=== PATIENT | female | born 1980 | race Caucasian/White ===

== ENCOUNTER 2016-06-16 14:04 | Emergency (ER) | payer BC ==
[~2016-06-16] VITALS: Ht 160 cm; Wt 101.5 kg
[~2016-06-16 14:04] MED LIST: FLEXERIL5 MG PO; LEXAPRO5 MG PO; NORCO 5/3251 TABLET PO; PRENATAL TABLE1 EAC3 PO; SKELAXIN800 MG PO; VITAMIN D-32000 UNI1 PO; ZANTAC150 MG PO
[2016-06-16] MEDS ORDERED: PREDNISONE20 MG PO (15:54)
[2016-06-16] MEDS ORDERED: ZOFRAN ODT4 MG PO (15:54)
[2016-06-16] MEDS ORDERED: ATARAX,VISTARIL25 MG PO (15:54)
[2016-06-16] MEDS ORDERED: ZANTAC150 MG PO (15:54)
[2016-06-16 16:27] VITALS: BP 95/48
== END 2016-06-16 16:28 | disposition home or self-care (01) ==
LOC: EME → EDBD 14:04 → EME 16:28
DX: R11.2 Nausea with vomiting, unspecified (principal); R19.7 Diarrhea, unspecified; L29.9 Pruritus, unspecified; L53.9 Erythematous condition, unspecified; R21 Rash and other nonspecific skin eruption; Z87.891 Personal history of nicotine dependence
CPT/HCPCS: 99281; 99284; J1200; J2405; J2930; J7030; S0028

== ENCOUNTER 2016-07-01 22:10 | Observation (INO) | payer BC ==
[~2016-07-01] VITALS: Ht 157.5 cm; Wt 100.4 kg
[~2016-07-01 22:10] MED LIST changes: +ATARAX,VISTARIL25 MG PO; +PREDNISONE20 MG PO; +ZOFRAN ODT4 MG PO
[2016-07-01 23:23] LABS: HEMATOCRIT 38.7 % (36.0-46.0); MCHC 33.3 G/DL (30.0-36.0); MCV 84.1 FL (83-99); MEAN PLAT.VOLUME 10.1 uM^3 (9.5-12.4); PLATELET COUNT 261 K/uL (156-360); RBC DIS.WIDTH-CV 13.4 % (11.8-14.6); RBC DIS.WIDTH-SD 41.1 % (39-53); WHITE BLOOD COUNT 8.4 K/uL (4.1-10.2)
[2016-07-01 23:34] LABS: CHLORIDE 108 mEq/L (99-109); SODIUM 137 mEq/L (136-147)
[2016-07-01 23:36] LABS: GLUCOSE 95 mg/dL (70-99)
[2016-07-01 23:37] LABS: ANION GAP 9 MEQ/L (2-14)
[2016-07-01 23:40] LABS: GFR ESTIMATE (CALCULATED) > 59 mL/min/; UREA NITROGEN (BUN) 16 mg/dL (9-23)
[2016-07-01 23:45] LABS: TROP-I INTERPRETATION NEGATIVE; TROPONIN-I < 0.01 ng/mL (0.0-0.30)
[2016-07-02 01:25] LABS: TROP-I INTERPRETATION NEGATIVE; TROPONIN-I < 0.01 ng/mL (0.0-0.30)
[2016-07-02] MEDS ORDERED: LEXAPRO10 MG PO (01:39)
[2016-07-02] MEDS ORDERED: CLONAZEPAM0.5 MG PO (01:40)
[2016-07-02] MEDS ORDERED: OMEPRAZOLE20 MG PO (01:41)
[2016-07-02 02:00] LABS: D-DIMER ELISA 0.45 mg/L FEU (< 0.57)
[2016-07-02 02:15] VITALS: BP 103/69
== END 2016-07-02 02:00 | disposition left against medical advice (07) ==
LOC: EME 22:10 → EDOF 07-02 01:25
PROVIDERS: Emergency Medicine
DX: R07.89 Other chest pain (principal); K22.4 Dyskinesia of esophagus; R11.0 Nausea; K21.9 Gastro-esophageal reflux disease without esophagitis; F32.9 Major depressive disorder, single episode, unspecified; F41.9 Anxiety disorder, unspecified
CPT/HCPCS: 71020; 80048; 84484; 85027; 85379; 93005; 99281; 99285; C9113; G0378; J2405; J2765

== ENCOUNTER 2017-06-30 13:18 | Emergency (ER) | payer BC ==
[~2017-06-30] VITALS: Ht 160 cm; Wt 110.1 kg
[~2017-06-30 13:18] MED LIST changes: +CLONAZEPAM0.5 MG PO; +LEXAPRO10 MG PO; +OMEPRAZOLE20 MG PO
[2017-06-30 14:08] LABS: HEMATOCRIT 40.3 % (36.0-46.0); HEMOGLOBIN 13.9 G/DL (11.9-15.5); MCH 28.5 PG (29.0-34.0); MCHC 34.5 G/DL (30.0-36.0); MCV 82.8 FL (83-99); PLATELET COUNT 269 K/uL (156-360); RBC DIS.WIDTH-CV 14.3 % (11.8-14.6); RBC DIS.WIDTH-SD 42.7 % (39-53); RED BLOOD COUNT 4.87 M/uL (3.80-5.20); WHITE BLOOD COUNT 7.3 K/uL (4.1-10.2)
[2017-06-30 14:17] LABS: CHLORIDE 106 mEq/L (99-109); POTASSIUM 3.9 mEq/L (3.7-5.4); SODIUM 138 mEq/L (136-147)
[2017-06-30 14:19] LABS: GLUCOSE 97 mg/dL (70-99)
[2017-06-30 14:23] LABS: CREATININE 0.7 mg/dL (0.6-1.3); GFR ESTIMATE (CALCULATED) > 59 mL/min/; UREA NITROGEN (BUN) 14 mg/dL (9-23)
[2017-06-30 14:31] LABS: QUANTITATIVE HCG < 4.0 MIU/ML
[2017-06-30] MEDS ORDERED: MEDROL DOSEPAK4 MG PO (15:58)
[2017-06-30] MEDS ORDERED: BENADRYL50 MG PO (15:58)
[2017-06-30] MEDS ORDERED: PEPCID20 MG PO (15:58)
[2017-06-30 16:19] VITALS: BP 117/82
== END 2017-06-30 16:20 | disposition home or self-care (01) ==
LOC: EME 13:18
PROVIDERS: Physician Assistant
DX: T78.40XA Allergy, unspecified, initial encounter (principal); L50.0 Allergic urticaria; K21.9 Gastro-esophageal reflux disease without esophagitis; F41.9 Anxiety disorder, unspecified; F32.9 Major depressive disorder, single episode, unspecified; Z87.891 Personal history of nicotine dependence; Z88.8 Allergy status to other drugs, medicaments and biological substances
CPT/HCPCS: 80048; 84702; 85027; 99281; 99285; J1100; J1200; J7030; S0028